=== PATIENT | male | born 1955 | race Caucasian/White ===

== ENCOUNTER 2016-06-18 19:17 | Emergency (ER) | payer BC ==
[~2016-06-18 19:17] MED LIST: [UNRECOGNIZED DRUG - OTHER]
[2016-06-18 20:36] LABS: URINE SOURCE CLEAN CATCH
[2016-06-18 20:46] LABS: CULTURE INDICATED? YES; MICRO INDICATED? YES; URINE APPEARANCE CLOUDY; URINE BACTERIA 1+ (NEG); URINE BILIRUBIN NEG (NEG); URINE BLOOD 3+ (NEG); URINE COLOR YELLOW; URINE GLUCOSE NEG (NORM); URINE KETONE NEG (NEG); URINE LEUKOCYTE ESTERASE 3+ (NEG); URINE NITRATE POS (NEG); URINE PROTEIN 1+ (NEG); URINE SPECIFIC GRAVITY 1.015 (1.003-1.035); URINE SQUAMOUS EPITHELIAL CELL FEW /[HPF]; URINE TRANSITIONAL EPI CELLS FEW /[HPF]; URINE UROBILINOGEN 0.2 MG/DL (NORM); URINE WBC 25-50 /[HPF] (0-5)
[2016-06-18 20:47] LABS: URINE AMORPHOUS SEDIMENT AMORP URATES
== END 2016-06-18 21:05 | disposition home or self-care (01) ==
LOC: SED 19:17
PROVIDERS: Emergency Medicine
DX: N39.0 Urinary tract infection, site not specified (principal); R33.9 Retention of urine, unspecified
CPT/HCPCS: 81003; 87086; 99284